=== PATIENT | female | born 1975 | race Caucasian/White ===

== ENCOUNTER 2020-03-28 02:05 | Emergency (ER) | payer OTHER ==
[~2020-03-28 02:05] MED LIST: ZPAK PO
[2020-03-28] MEDS ORDERED: ILOTYCIN1 GM OS (04:53)
== END 2020-03-28 04:59 | disposition home or self-care (01) ==
LOC: FER 02:05
DX: H01.005 Unspecified blepharitis left lower eyelid (principal)
CPT/HCPCS: 99283